=== PATIENT | female | born 1970 | race Caucasian/White ===

== ENCOUNTER → 2019-02-07 | Outpatient (CLI) | payer BC ==
[~2019-02-07] MED LIST: ASPI-1 PO; BIMA01SOL OU; BYDU1INJ SC; CALC-196 PO; CITA20TA6 PO; CLAR10CA3 PO; CRES10TA PO; DIOV80TA3 PO; FISH120012 PO; FLON1SPR; GLYB125TA PO; INVO300T PO; METF-791 PO; METF500T13 PO; OXYC1TAB23 PO; ZETI10TA16 PO; bydureon SC; citalopram OR; lumigan
[2019-02-07 16:41] LABS: BLOOD UREA NITROGEN 21 MG/DL (7-18); CALCIUM LEVEL 9.2 MG/DL (8.5-10.1); CARBON DIOXIDE LEVEL 27 MEQ/L (21-32); CHLORIDE LEVEL 106 MEQ/L (98-107); CREATININE FOR GFR 0.85 MG/DL (0.55-1.30); GLOMERULAR FILTRATION RATE > 60.0 (>51); GLUCOSE, FASTING 181 MG/DL (70-100); SODIUM LEVEL 139 MEQ/L (136-145)
--- NOTE | 2019-02-07 22:17 | ECGEPIP ---
[facility] Test Date: 2019-02-07 Pat Name: YUE AYON Department: Room: - Gender: Female Production Support Consultant: TOY : 1970 Requested By: Jose Alfredo Ferrer Order Number: [id number] Reading MD: Nicola Desai Measurements Intervals [place] Rate: 76 P: 44 UT: 168 QRS: 39 QRSD: 84 T: 16 QT: 379 QTc: 427 Interpretive Statements Normal sinus rhythm Early anterior R wave progression Nonspecific ST-T wave abnormalities Comparison tracing not on file Electronically Signed on 02-07-2019 22:16:55 EST by Nicola Desai
== END ==
LOC: M LAB 15:48
PROVIDERS: ATTEND Orthopaedic Surgery
DX: Z01.810 Encounter for preprocedural cardiovascular examination (principal); Z79.899 Other long term (current) drug therapy

== ENCOUNTER → 2020-09-01 | Outpatient (CLI) | payer BC ==
[~2020-09-01] MED LIST changes: -METF-791 PO; +METF-838 PO
--- NOTE | 2020-09-03 16:15 | SLEEPCENT ---
NOCTURNAL POLYSOMNOGRAPHY DATE: 09/01/2020 ORDERED BY: SOL Adler Nocturnal polysomnography was performed for retitration of pressure therapy in this patient with obstructive sleep apnea syndrome. For testing a ResMed AirFit N20 nasal mask of medium size was used with a chin strap, 10 cm of water pressure were applied to the circuit, and the lights were extinguished. 8 hours and 17 minutes of data were reviewed. There were 346 minutes of sleep identified. Sleep latency was prolonged at 47 minutes. REM latency was prolonged at 233 minutes. Sleep architecture improved late in the study on optimal pressure therapy and two REM cycles were appreciated. Overall sleep efficiency was 70.5%. The electrocardiogram showed a sinus rhythm with an average heart rate of 60 beats per minute. EEG showed normal waveforms for wake and sleep. Respiratory events were best palliated with CPAP at a pressure of 13. There was some activity noted in the limb leads. Limb movement arousal index on this occasion was 22.7. IMPRESSION: 1. Obstructive sleep apnea syndrome (G47.33). 2. Possible periodic limb movement disorder (G47.61), limb movement arousal index 22.7. RECOMMENDATION: Nightly use of pressure therapy 13 cm of water should be sufficient to address the patient's obstructive respiratory events. Should sleep symptoms persist, interventions to reduce the frequency of arousal from limb activity may also be helpful.
== END ==
LOC: M SLEEP 20:00
PROVIDERS: ATTEND Physician Assistant
DX: G47.33 Obstructive sleep apnea (adult) (pediatric) (principal); G47.61 Periodic limb movement disorder

== ENCOUNTER → 2020-12-24 | Outpatient (REF) | payer BC ==
[2020-12-24 18:16] LABS: CREATININE, URINE 59.9 MG/DL; MALB URINE SIEMENS < 5.0 MG/L; MAU/CREAT RATIO 8.3 MCG/MG (0.0-30.0)
== END ==
LOC: M LAB REF 17:22
PROVIDERS: ATTEND Nurse Practitioner Family
DX: E11.65 Type 2 diabetes mellitus with hyperglycemia (principal)